=== PATIENT | female | born 1995 | race African-American/Black ===

== ENCOUNTER → 2017-11-19 | Day surgery (SDC) | payer OTHER ==
[~2017-11-19] MED LIST: LIDOCAINE 1% INJ-PF (10 MG/ML) 30 ML SDV ONE
--- NOTE | 2017-11-19 09:46 | RADIOLOGY REPORT (SQ) ---
EXAM DESCRIPTION: ARTHRO HIP INJ W/ANESTHESIA COMPLETE DATE/TIME: 11/19/2017 9:31 am REASON FOR STUDY: LT HIP PAIN M25.552 PAIN IN LEFT HIP FINDINGS: Please see combined report for performance of procedure and radiologic supervision and int erpretation. IMPRESSION: Please see combined report for performance of procedure and radiologic supervision and i nterpretation. Reading location - IP/workstation name: [email or web address]
--- NOTE | 2017-11-19 09:50 | RADIOLOGY REPORT (SQ) ---
EXAM DESCRIPTION: FLUORO/NEEDLE PLACEMENT COMPLETED DATE/TIME: 11/19/2017 9:31 am REASON FOR STUDY: LT HIP PAIN M25.552 PAIN IN LEFT HIP COMPARISON: None. FLUOROSCOPY TIME: 22 seconds 3 images saved to PACS. LIMITATIONS: None. PROCEDURE: Procedure, risks, benefits and alternatives explained to patient who then gave written c onsent. The left hip was marked and a time-out was called for correct marking verification. Entry s ite marked using fluoroscopic guidance. Hip prepped and draped using sterile technique. Local anes thesia achieved using 1% lidocaine injection. Hypodermic needle introduced into the joint space und er direct fluoroscopic visualization. Non-ionic contrast instilled to confirm intra-articular positi on. Dilute gadolinium solution then injected. Needle removed and entry site covered with sterile b andage. No immediate complications noted. TECHNIQUE: Digital images acquired during fluoroscopy and stored on PACS. Patient immediately take n to the MR suite for additional imaging. INJECTION LOCATION: Anterior CONTRAST TYPE AND AMOUNT: 9 mL ProHance solution IMPRESSION: SUCCESSFUL NEEDLE PLACEMENT AND INJECTION FOR left HIP MR ARTHROGRAM. COMMENT: Quality ID [id number]: Final reports for procedures using fluoroscopy that document radiation exp osure indices, or exposure time and number of fluorographic images (if radiation exposure indices are not available) TECHNICAL DOCUMENTATION: JOB ID: [id number] [employer]- All Rights Reserved Reading location - IP/workstation name: [facility], [facility]
--- NOTE | 2017-11-19 10:40 | RADIOLOGY REPORT (SQ) ---
EXAM DESCRIPTION: MRI LT LOWER JOINT WITH COMPLETED DATE/TIME: 11/19/2017 10:05 am REASON FOR STUDY: LT HIP PAIN M25.552 PAIN IN LEFT HIP COMPARISON: None. TECHNIQUE: Post arthrogram imaging is performed using T1 and T1 and T2 fat saturated sequences of th e pelvis and specific hip of interest. LIMITATIONS: None. FINDINGS: LEFT HIP JOINT DISTENSION: Adequate. No loose body. BONE MARROW: No edema. No marrow replacement. FEMORAL HEAD, NECK, AND ACETABULUM: No occult fracture. No osteophytes or subchondral cysts. Normal s phericity of femoral head/neck junction. No acetabular dysplasia. No evidence of femoroacetabular imp ingement. LABRUM AND CARTILAGE: No labral tear. Cartilage of normal thickness without delamination. PUBIC RAMI AND ISCHIUM: No occult fracture. SACRUM AND AMAN: SI joints normal in signal. No occult fracture. EFFUSIONS: None. MUSCLES AND SOFT TISSUES: Adductors and piriformis normal. Abductors and greater trochanteric bursa n ormal without edema or fluid. Iliopsoas bursa without fluid. Hamstring attachments without edema or t ear. PELVIC SOFT TISSUES: No masses or adenopathy. SCIATIC NERVE: Identified without masses. OTHER: No other significant finding. IMPRESSION: NORMAL MRI ARTHROGRAM OF THE HIP. TECHNICAL DOCUMENTATION: JOB ID: [id number] [employer]- All Rights Reserved Reading location - IP/workstation name: [email or web address]
== END ==
LOC: RAD 08:41 → EDSTATUS 09:00
PROVIDERS: ATTEND Family Medicine
DX: M25.552 Pain in left hip (principal)
CPT/HCPCS: 73722; 77002; 27095; A9576; J3490

== ENCOUNTER 2018-03-13 02:07 | Emergency (ER) | payer OTHER ==
--- NOTE | 2018-03-13 02:36 | ER Document Report ---
HPI - HPI Patient complains to provider of: Sore throat Pain Level: Denies Context: Patient is a 22-year-old female presenting to the emergency department complaining of cough and sore throat. Patient denies fever. Patient denies rash, chest pain, nausea, vomiting, diarrhea. Patient denies dysuria, vaginal discharge, abdominal pain. Patient states she is 4 weeks , last menstrual period was 02/11. Patient states she has had blood tests at unable to confirm the . Patient states this evening she was lying on her back and her throat was hurting felt like she could not breathe which worried her. This is why she presents to the emergency room. Patient denies eating or drinking at the time of this episode. Patient denies any rash or chest tightness at any time. Past medical history: None Medications: vitamins Allergies: None Surgical history: None Patient denies cigarette smoking, denies illicit drug use, denies EtOH use. - DERM Skin Color: Normal Past Medical History - General Information source: Patient - Social History Smoking Status: Never Smoker Frequency of alcohol use: None Drug Abuse: None Lives with: Family Family History: Reviewed & Not Pertinent Patient has suicidal ideation: No Patient has homicidal ideation: No Renal/ Medical History: Denies: Hx Peritoneal Dialysis Vertical Provider Document - CONSTITUTIONAL Agree With Documented VS: Yes Notes: GENERAL: Alert, interacts well. No acute distress. HEAD: Normocephalic, atraumatic. No frontal or maxillary sinus tenderness EYES: Pupils equal, round, and reactive to light. Extraocular movements intact. ENT: Oral mucosa moist, tongue midline. Nares patent, TM's intact, not erythematous, nonbulging. Pharynx mannerly erythematous, tonsils +2 bilaterally , no exudate, no palatal petechiae. NECK: Full range of motion. Supple. Trachea midline. No lymphadenopathy appreciated LUNGS: Clear to auscultation bilaterally, no wheezes, rales, or rhonchi. No respiratory distress. HEART: Regular rate and rhythm. No murmur ABDOMEN: Soft, non-tender. Non-distended. Bowel sounds present in all 4 quadrants. EXTREMITIES: Moves all 4 extremities spontaneously. No edema, normal radial and dorsalis pedis pulses bilaterally. No cyanosis. BACK: no cervical, thoracic, lumbar midline tenderness. No saddle anesthesia, normal distal neurovascular exam. NEUROLOGICAL: Alert and oriented x3. Normal speech. cranial nerves II through XII grossly intact PSYCH: Normal affect, normal mood. SKIN: Warm, dry, normal turgor. No rashes or lesions noted. - INFECTION CONTROL TRAVEL OUTSIDE OF THE [place] IN LAST 30 DAYS: No Course - Re-evaluation Re-evalutation: 03/13/18 03:06 Lung sounds are clear and equal in all jarquin. No signs of respiratory distress. Strep test came back negative. Discussed viral pharyngitis diagnosis with patient at bedside. Discussed need to follow-up with primary care and then [facility] for her new . Discussed [id number] Tylenol for her sore throat. - Vital Signs Vital signs: Temp Pulse Resp BP Pulse Ox 97.6 F 87 18 123/71 100 03/13/18 02:12 03/13/18 02:12 03/13/18 02:12 03/13/18 02:12 03/13/18 02:12 Discharge - Discharge Clinical Impression: Pharyngitis Qualifiers: Pharyngitis/tonsillitis etiology: unspecified etiology Qualified Code(s): J02.9 - Acute pharyngitis, unspecified Condition: Stable Disposition: HOME, SELF-CARE Additional Instructions: As we discussed you have been seen and treated in the emergency department for something called pharyngitis. This means you have a sore throat. Your rapid strep came back negative for bacteria. This means your sore throat is most likely caused by a virus. Viruses do not respond to antibiotics. You should follow-up with your primary care in the next 24-48 hours. Please return to the emergency room for any other worsening symptoms.
[2018-03-13 03:37] VITALS: BP 118/66
== END 2018-03-13 03:36 | disposition home or self-care (01) ==
LOC: ER 02:07
DX: J02.9 Acute pharyngitis, unspecified (principal); R05 Cough
CPT/HCPCS: 87070; 87880; 99284

== ENCOUNTER 2018-06-28 23:58 | Emergency (ER) | payer OTHER ==
[2018-06-29 03:42] LABS: APPEARANCE,URINE CLEAR; BILIRUBIN,URINE NEGATIVE (NEGATIVE); COLOR,URINE STRAW; GLUCOSE, URINE NEGATIVE (NEGATIVE); KETONES,URINE NEGATIVE (NEGATIVE); LEUKOCYTE ESTERASE,URINE NEGATIVE (NEGATIVE); NITRITE,URINE NEGATIVE (NEGATIVE); PROTEIN,URINE NEGATIVE (NEGATIVE); URINE SPECIFIC GRAVITY 1.012; UROBILINOGEN,URINE NEGATIVE mg/dL (<2.0)
--- NOTE | 2018-06-29 05:11 | ER Document Report ---
ED General - General Chief Complaint: Abdominal Pain Stated Complaint: CRAMPING BILATERAL SIDES Time Seen by Provider: 06/29/18 04:25 Mode of Arrival: Ambulatory Information source: Patient TRAVEL OUTSIDE OF THE [place] IN LAST 30 DAYS: No - HPI Patient complains to provider of: Upper abdominal pain in second trimester Onset: Other - Started on Wednesday morning intermittently and became constant by Wednesday evening Onset/Duration: Intermittent, Worse Quality of pain: Cramping Severity: Moderate Associated symptoms: denies: Chills, Diarrhea, Fever, Nausea, Vomiting Exacerbated by: Denies Relieved by: Denies Similar symptoms previously: No Recently seen / treated by doctor: No Notes: Patient is a primigravida 23-year-old -[place] female coming in today with sharp upper abdominal pain that started yesterday in the morning but progressively became worse and constant in the evening. No vaginal bleeding. No fevers or chills. No vomiting or diarrhea - Related Data Allergies/Adverse Reactions: No Known Allergies Allergy (Unverified 03/13/18 02:29) Past Medical History - General Information source: Patient - Social History Smoking Status: Never Smoker Family History: Reviewed & Not Pertinent Patient has suicidal ideation: No Patient has homicidal ideation: No Renal/ Medical History: Denies: Hx Peritoneal Dialysis Review of Systems - Review of Systems Notes: Constitutional: No fevers. No chills. EENT: No eye redness. No eye pain. No ear pain. No sore throat. Cardiovascular: No chest pain. No palpitations. Respiratory: No cough. No shortness of breath. No respiratory distress. Gastrointestinal: Upper abdominal pain. No nausea, vomiting, or diarrhea. Genitourinary: Atraumatic. No lesions. No pain. No discharge. Musculoskeletal: Atraumatic. No swelling. No deformities. Skin: No rash or lesions. Lymphatic: No swollen lymph nodes. Neurologic: No headache. No syncope. Psychiatric: No suicidal or homicidal ideation. Physical Exam - Vital signs Vitals: Temp Pulse Resp BP Pulse Ox 98.1 F 80 18 111/60 100 06/28/18 23:58 06/28/18 23:58 06/28/18 23:58 06/28/18 23:58 06/28/18 23:58 - Notes Notes: General: Well-developed, well-nourished. In no acute distress. Non-toxic appearing. Cardiac: Well-perfused. Regular rate and rhythm. No murmurs, rubs, or gallops. Pulmonary: No respiratory distress. No cyanosis. Bilateral lung fiels are clear to auscultation. Abdominal: Gravid abdomen. Epigastric and left upper quadrant abdominal tenderness palpation. No guarding or rebound. HEENT: Head is atraumatic. Conjunctivae not reddened. No tearing. PERRL. EOMI. Orbits atraumatic. No periorbital swelling or erythema. Oropharynx is without erythema, swelling, or exudates. Neck: Supple. No adenopathy. No meningismus. Dermatologic: Warm with good turgor. No rash. Atraumatic. Chest: Atraumatic. No chest wall tenderness to palpation. Musculoskeletal: Moves all extremities well. No range of motion deficits. no muscular or joint tenderness. No paraspinal muscle tenderness. no midline spinal tenderness or step-off. Genitourinary: Examination deferred Neurologic: No gross neurologic deficits. Psychiatric: Normal mood. Course - Re-evaluation Re-evalutation: 06/29/18 06:57 The lab tests were evidently sent in for whatever reason were not resulted. Ultrasound came back with live intrauterine . There is also no abnor malities seen on the right upper quadrant abdominal ultrasound. 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 - Vital Signs Vital signs: Temp Pulse Resp BP Pulse Ox 98.1 F 80 18 111/60 100 06/28/18 23:58 06/28/18 23:58 06/28/18 23:58 06/28/18 23:58 06/28/18 23:58 - Laboratory Result Diagrams: 06/29/18 03:11 06/29/18 03:11 - Diagnostic Test Radiology reviewed: Reports reviewed Discharge - Discharge Clinical Impression: Abdominal pain affecting Condition: Good Disposition: HOME, SELF-CARE Instructions: Abdominal Pain ([facility]), ([facility]) Additional Instructions: Drink at least 64 ounces of water a day. Get plenty of rest. Recommend follow- up with OB of the next day or 2. Referrals: [facility], YOUR [Other] - Follow up tomorrow
--- NOTE | 2018-06-29 06:44 | RADIOLOGY REPORT (SQ) ---
EXAM DESCRIPTION: US ABDOMEN LIMITED COMPLETED DATE/TME: 06/29/2018 05:06 CLINICAL HISTORY: 23 years, Female, epigastric pain-constant Comparison: None Grayscale and Doppler sonogram of the right upper quadrant. FINDINGS: Pancreas: Visualized portion is unremarkable. Aorta: Visualized portion is unremarkable. IVC: Visualized portion is unremarkable. Liver: Homogenous echotexture. Main portal vein: Normal directional flow. Gallbladder: Unremarkable. Common bile duct: Diameter: 0.2 cm. Right kidney: 11 cm. No hydronephrosis. No nephrolithiasis. IMPRESSION: No acute sonographic abnormality.
--- NOTE | 2018-06-29 06:47 | RADIOLOGY REPORT (SQ) ---
EXAM DESCRIPTION: US FOLLOW UP COMPLETED DATE/TME: 06/29/2018 05:05 CLINICAL HISTORY: 23 years, Female, upper abdominal pain COMPARISON:None. TECHNIQUE: Grayscale and Doppler sonogram of the pelvis. Transbadominal technique was performed. FINDINGS: The uterus contains a single fetus in the breech orientation. Estimated gestational age is 20 weeks one day by current ultrasound. Date of delivery November 15, 2018. Estimated weight 362 g. cardiac activity is measured at 149 bpm. Gross evaluation of the anatomy shows no abnormalities however the kidneys and spine are not visualized due to previous orientation. The stent is located anteriorly. The cervix is not well visualized but measures at least 2.5 cm in length. There is no previa. The maternal ovaries are not visualized. IMPRESSION: Single live intrauterine .
[2018-06-29 06:57] LABS: ABSOLUTE LYMPHOCYTES (AUTO) 2.1 10^3/uL (0.5-4.7); ABSOLUTE MONOCYTES (AUTO) 0.5 10^3/uL (0.1-1.4); ABSOLUTE NEUT (AUTO) 5.8 10^3/uL (1.7-8.2); BASOPHILS % (AUTO) 0.3 % (0-2); EOSINOPHILS % (AUTO) 0.5 % (0-6); HEMATOCRIT 30.3 % (36.0-47.0); HEMOGLOBIN 10.7 g/dL (12.0-15.5); LYMPHOCYTES % (AUTO) 24.8 % (13-45); MEAN CORPUSCULAR HEMOGLOBIN 31.3 pg (27.0-33.4); MEAN CORPUSCULAR HGB CONC 35.4 g/dL (32.0-36.0); MEAN CORPUSCULAR VOLUME 89 fl (80-97); PLATELET COUNT 191 10^3/uL (150-450); RED BLOOD COUNT 3.42 10^6/uL (3.72-5.28); RED CELL DISTRIBUTION WIDTH 13.7 % (11.5-14.0); SEGMENTED NEUTROPHILS % (AUTO) 68.4 % (42-78); TOTAL CELLS COUNTED % (AUTO) 100 %; WHITE BLOOD COUNT 8.4 10^3/uL (4.0-10.5)
[2018-06-29 07:00] LABS: ALANINE AMINOTRANSFERASE 10 U/L (9-52); ALBUMIN 3.8 g/dL (3.5-5.0); ALKALINE PHOSPHATASE 43 U/L (38-126); ANION GAP 9 (5-19); ASPARTATE AMINO TRANSFERASE 17 U/L (14-36); BILIRUBIN,DIRECT 0.2 mg/dL (0.0-0.4); BILIRUBIN,TOTAL 0.3 mg/dL (0.2-1.3); BLOOD UREA NITROGEN 14 mg/dL (7-20); CALCIUM 9.5 mg/dL (8.4-10.2); CARBON DIOXIDE 24 mmol/L (22-30); CHLORIDE 104 mmol/L (98-107); GLUCOSE 79 mg/dL (75-110); LIPASE 177.6 U/L (23-300); POTASSIUM 4.3 mmol/L (3.6-5.0); TOTAL PROTEIN 6.8 g/dL (6.3-8.2)
[2018-06-29 07:22] VITALS: BP 112/75
== END 2018-06-29 07:22 | disposition home or self-care (01) ==
LOC: ER 23:58
DX: O26.91 Pregnancy related conditions, unspecified, first trimester (principal); R10.10 Upper abdominal pain, unspecified
CPT/HCPCS: 36415; 76705; 76805; 80053; 81001; 83690; 85025; 93976; 99284

== ENCOUNTER 2020-03-26 05:39 | Emergency (ER) | payer OTHER ==
[2020-03-26 05:53] VITALS: BP 126/81
[2020-03-26] MEDS ORDERED: ACETAMINOPHEN 325 MG TABLET PO ONE (05:58)
--- NOTE | 2020-03-26 14:05 | ER Document Report ---
Entered by LIDIA SUAREZ SCRIBE 03/26/20 0810 Acting as scribe for:CLEM KATZ MD ED ENT - General Chief Complaint: Ear Pain Stated Complaint: RIGHT EAR PAIN Time Seen by Provider: 03/26/20 08:01 Mode of Arrival: Ambulatory Information source: Patient Notes: This 24 year old female patient presents to the ED today with complaints of right ear pain that started x4 days ago, worse this morning. Patient states that she was seen at an urgent care x4 days ago and had cerumen removed from both ears. She reports that initially the pain resolved in both ears after the cerumen removal, but x2 nights ago, the pain returned in the right ear with radiation to her jaw and throat. She notes taking Ibuprofen with relief, but states that she woke up this morning with worsening pain, so she decided to come to the ED for evaluation. TRAVEL OUTSIDE OF THE [place] IN LAST 30 DAYS: No - Related Data Allergies/Adverse Reactions: No Known Allergies Allergy (Verified 03/26/20 05:52) Past Medical History - General Information source: Patient - Social History Smoking Status: Never Smoker Cigarette use (# per day): No Chew tobacco use (# tins/day): No Smoking Education Provided: No Frequency of alcohol use: None Drug Abuse: None Lives with: Family Family History: Reviewed & Not Pertinent Patient has suicidal ideation: No Patient has homicidal ideation: No - Medical History Medical History: Negative Past Surgical History: Reports: Hx Section Review of Systems - Review of Systems Constitutional: No symptoms reported EENT: See HPI, Ear pain, Throat pain, Other - Jaw pain Cardiovascular: No symptoms reported Respiratory: No symptoms reported Gastrointestinal: No symptoms reported Genitourinary: No symptoms reported Female Genitourinary: No symptoms reported Musculoskeletal: No symptoms reported Skin: No symptoms reported Hematologic/Lymphatic: No symptoms reported Neurological/Psychological: No symptoms reported -: Yes All other systems reviewed and negative Physical Exam - Vital signs Vitals: Temp Pulse Resp BP Pulse Ox 98.2 F 90 18 126/81 H 100 03/26/20 05:52 03/26/20 05:52 03/26/20 05:52 03/26/20 05:52 03/26/20 05:52 - General General appearance: Appears well, Alert In distress: None - HEENT Head: Normocephalic, Atraumatic Eyes: Normal Pupils: PERRL External canal: Cerumen impaction - Left ear, Swollen - Right ear Tympanic membrane: Injected - Right TM Pharynx: Normal. No: Erythema - Respiratory Respiratory status: No respiratory distress Chest status: Nontender Breath sounds: Normal Chest palpation: Normal - Cardiovascular Rhythm: Regular Heart sounds: Normal auscultation Murmur: No Friction rub: No Gallop: None auscultated - Abdominal Inspection: Normal Distension: No distension Bowel sounds: Normal Tenderness: Nontender - Abdomen soft Organomegaly: No organomegaly - Back Back: Normal, Nontender - Extremities General upper extremity: Normal inspection General lower extremity: Normal inspection. No: Edema - Neurological Neuro grossly intact: Yes Orientation: AAOx4 [place] Coma Scale Eye Opening: Spontaneous [place] Coma Scale Verbal: Oriented Sam Coma Scale Motor: Obeys Commands Sam Coma Scale Total: 15 - Psychological Associated symptoms: Normal affect, Normal mood - Skin Skin Temperature: Warm Skin Moisture: Dry Skin Color: Normal Course - Vital Signs Vital signs: Temp Pulse Resp BP Pulse Ox 98.2 F 90 18 126/81 H 100 03/26/20 05:52 03/26/20 05:52 03/26/20 05:52 03/26/20 05:52 03/26/20 05:52 Discharge - Discharge Clinical Impression: Right otitis media Qualifiers: Otitis media type: unspecified Qualified Code(s): H66.91 - Otitis media, unspecified, right ear Right otitis externa Qualifiers: Otitis externa type: unspecified type Chronicity: acute Qualified Code(s): H60.501 - Unspecified acute noninfective otitis externa, right ear Condition: Stable Disposition: HOME, SELF-CARE Additional Instructions: Otitis Externa You have otitis externa -- an infection of the outer ear canal. This can be very painful. It's sometimes called "swimmer's ear," because it often occurs after prolonged water exposure. Many things, such as earwax and dirt in the ear, can contribute to it. The usual treatment is antibiotic/antiinflammatory ear drops. If the infection is severe, an oral antibiotic may be prescribed. Pain medication is often needed. Avoid getting water in the ear. Outer ear infections often take longer to heal than you might expect. Some tenderness and ache in the ear may persist for about two weeks. See your physician if you fail to improve as expected. Call the doctor at once if you develop fever, increasing swelling (particularly if it makes your ear "poke out"), severe headache, stiff neck, or decreased hearing. Take the medications as prescribed. Do not put anything in your right ear except for the antibiotic drops. Use Debrox earwax removal drops in your left ear to help remove the earwax. Take Tylenol and ibuprofen for pain as needed. Follow-up with your primary care provider or [facility] if not improving. RETURN TO THE EMERGENCY ROOM IF ANY NEW OR WORSENING SYMPTOMS. Prescriptions: Amoxicillin/Potassium Clav [Augmentin 875-125 Tablet] 1 tab PO BID #20 tab Neomy Sulf/Polymyx B Sulf/Hc [Cortisporin Otic Susp] 4 drop OD Q4 #10 ml I personally performed the services described in the documentation, reviewed and edited the documentation which was dictated to the scribe in my presence, and it accurately records my words and actions.
== END 2020-03-26 08:23 | disposition home or self-care (01) ==
LOC: ER 05:39
DX: H66.91 Otitis media, unspecified, right ear (principal); H60.501 Unspecified acute noninfective otitis externa, right ear; H92.01 Otalgia, right ear; H61.22 Impacted cerumen, left ear; R07.0 Pain in throat; R68.84 Jaw pain; Z98.890 Other specified postprocedural states
CPT/HCPCS: 99283